=== PATIENT | male | born 1960 | race Caucasian/White ===

== ENCOUNTER 2018-07-27 21:19 | Emergency (ER) | payer OTHER ==
[~2018-07-27] VITALS: Ht 170.2 cm; Wt 74.8 kg
--- NOTE | ~2018-07-27 | EKG ---
[place] [address] [facility] [place] [address] ELECTROCARDIOGRAM REPORT Name: LARISA ESTRLELAKIMI MORALES Room #: DEP [facility]#: [id number] Admission: 07/27/18 Attend Phys: Discharge: 07/28/18 Date of : 58 Report #: [id number] THIS REPORT FOR: //name// [facility] ED Test Date: 2018-07-27 Test Time: 21:26:23 Pat Name: KIMI ESTRELLA Department: Room: Gender: M [employer] Librarian: CHRIS : 1960 Requested By: Mendy Gilmore Order Number: [id number] MD: Gregory Saleh Measurements Intervals [place] Rate: 87 P: 67 DC: 163 QRS: -5 QRSD: 95 T: 30 QT: 370 QTc: 445 Interpretive Statements Sinus rhythm Borderline low voltage, extremity leads Baseline wander in lead(s) V2 No previous ECG available for comparison Electronically Signed On 07-28-2018 9:03:38 MOBILE DESIGN[employer] by Gregory Saleh [email or web address] <ELECTRONICALLY SIGNED> By: Gregory Saleh MD, [facility] 07/28/18 09 25 25 Gregory Saleh MD, [facility] /EPI
[2018-07-27] MEDS ORDERED: KLOR-CON 1010 MEQ PO (21:37)
[2018-07-27] MEDS ORDERED: FISH OIL 1,001000 M2 PO (21:58)
[2018-07-27] MEDS ORDERED: GARLIC1000 MG PO (21:59)
[2018-07-27] MEDS ORDERED: LIPITOR10 MG PO (22:00)
[2018-07-27 22:02] LABS: ANION GAP 6 mmol/L (7-16); BUN 15 mg/dL (7-18); CALCIUM 8.7 mg/dL (8.5-10.1); CHLORIDE 105 mmol/L (98-107); CO2 28 mmol/L (21-32); CREATININE 0.8 mg/dL (0.7-1.3); GLUCOSE 109 mg/dL (74-106); POTASSIUM 3.5 mmol/L (3.5-5.1); SODIUM 139 mmol/L (136-145)
[2018-07-27] MEDS ORDERED: CELEBREX 200 M200 M1 PO (22:02)
[2018-07-27] MEDS ORDERED: TURMERIC500 M2 PO (22:03)
[2018-07-27 22:11] LABS: ALBUMIN 3.8 g/dL (3.4-5.0); SGOT 21 U/L (15-37); SGPT 30 U/L (30-65); TOTAL BILIRUBIN 0.3 mg/dL (<0.1-1.0); TROPONIN-I <0.06 ng/mL (<0.06)
[2018-07-27 22:20] LABS: ABSOLUTE NEUTROPHILS 3.4 thou/uL (1.4-8.2); BASOPHILS 0.8 % (0.0-2.0); EOSINOPHILS 3.3 % (0.0-3.0); HEMATOCRIT 41.8 % (42.0-52.0); HEMOGLOBIN 14.1 gm/dL (14.0-18.0); LYMPHOCYTES 35.1 % (24.0-44.0); MCH 30.1 pg (26.0-34.0); MCHC 33.6 g/dL (28.0-37.0); MCV 89.6 fL (80.0-100.0); MONOCYTES 8.1 % (1.0-8.0); PLATELET COUNT 222 thou/uL (150-400); POLYS 52.7 % (36.0-66.0); RBC 4.67 mil/uL (4.50-6.00); RDW 12.7 % (10.5-14.5); WBC 6.4 thou/uL (4.0-11.0)
[2018-07-28 01:00] VITALS: BP 108/70
== END 2018-07-28 01:01 | disposition home or self-care (01) ==
LOC: ER 21:19
PROVIDERS: Student in an Organized Health Care Education/Training Program
DX: R07.89 Other chest pain (principal); E78.00 Pure hypercholesterolemia, unspecified; F41.9 Anxiety disorder, unspecified; I10 Essential (primary) hypertension; M19.90 Unspecified osteoarthritis, unspecified site